=== PATIENT | female | born 1970 | race American Indian/Alaskan Native ===

== ENCOUNTER 2022-07-02 09:29 | Emergency (ER) | payer OTHER ==
[2022-07-02 09:38] VITALS: BMI 26.5
[2022-07-02] MEDS ORDERED: morphine CARPU-JECT 4 MG/1 ML DISP.SYRIN IVPUSH ONE (10:18)
[2022-07-02] MEDS ORDERED: morphine SULFATE 4 MG/ML VIAL ONE (10:30)
[2022-07-02 11:25] LABS: BASO % 0.4 % (0-2.0); EOS % 0.8 % (0-4.5); HEMATOCRIT 39.8 % (32.4-45.2); HEMOGLOBIN 13.7 GM/dL (10.7-15.3); LYMPH % 22.1 % (8-40); MCHC 34.4 g/dl (32.0-36.0); MEAN CELL VOLUME 78.4 fl (80-96); MEAN PLT VOLUME 11.7 fl (7.5-11.1); MONO % 8.4 % (3.8-10.2); NEUT % 68.3 % (42.8-82.8); PLATELET COUNT 217 10^3/uL (134-434); RBC 5.08 M/mm3 (3.60-5.2); RDW 18.8 % (11.6-15.6); WHITE BLOOD COUNT 5.3 K/mm3 (4.0-10.0)
[2022-07-02 11:32] LABS: CHLORIDE 96 mmol/L (98-107); POTASSIUM 4.6 mmol/L (3.5-5.1); SODIUM 131 mmol/L (136-145)
[2022-07-02 11:34] LABS: CALCIUM 8.9 mg/dL (8.5-10.1)
[2022-07-02 11:35] LABS: ALBUMIN 4.2 g/dl (3.4-5.0); ANION GAP 10 MMOL/L (8-16); BLOOD UREA NITROGEN 12.6 mg/dL (7-18); CO2 25 mmol/L (21-32)
[2022-07-02 11:38] LABS: CREATININE 0.8 mg/dL (0.55-1.3); SGOT/AST 8 U/L (15-37); SGPT/ALT 19 U/L (13-61)
[2022-07-02 11:39] LABS: BILIRUBIN,TOTAL 0.6 mg/dL (0.2-1)
[2022-07-02 11:41] LABS: ALK PHOS 83 U/L (45-117)
[2022-07-02 11:52] LABS: GLUCOSE,RANDOM 485 mg/dL (74-106)
[2022-07-02 12:49] LABS: URINE APPEARANCE CLEAR; URINE COLOR YELLOW
[2022-07-02 12:50] LABS: URINE BILIRUBIN NEGATIVE (NEGATIVE); URINE KETONE NEGATIVE (NEGATIVE)
[2022-07-02 12:51] LABS: EPI CELLS 14 /uL (0-25.1); HYALINE CASTS 0 /uL (0-3.1); URINE GLUCOSE (UA) 4+ (NEGATIVE); URINE LEUK ESTERASE NEGATIVE (NEGATIVE); URINE NITRITE NEGATIVE (NEGATIVE); URINE PROTEIN NEGATIVE (NEGATIVE); URINE RBC 8 /uL (0-23.9); URINE UROBILINOGEN 0.2 mg/dL (0.2-1.0); URINE WBC 7 /uL (0-25.8)
[2022-07-02 12:52] LABS: URINE BACTERIA 383 /uL (0-1359)
[2022-07-02 13:15] VITALS: BP 151/101; RESP 16; TEMP 98.1
[2022-07-02 13:29] VITALS: PULSE 89
== END 2022-07-02 13:34 | disposition home or self-care (01) ==
LOC: JERFT 09:29
PROC: 3E033GC Introduction of Other Therapeutic Substance into Peripheral Vein, Percutaneous Approach (ICD-10-PCS; principal; 2022-07-02)
DX: M79.604 Pain in right leg (principal); E03.9 Hypothyroidism, unspecified; M79.2 Neuralgia and neuritis, unspecified; E11.9 Type 2 diabetes mellitus without complications; Z20.822 Contact with and (suspected) exposure to COVID-19
CPT/HCPCS: 36415; 72131-TC; 80053; 81003; 82550; 83605; 84436; 84439; 84443; 84481; 84703; 85025; 93005; 93010; 99285-25; C9803-CS; U0003; U0005